=== PATIENT | male | born 1970 | race Caucasian/White ===

== ENCOUNTER 2017-08-23 13:12 | Emergency (ER) | payer OTHER ==
[~2017-08-23] VITALS: Ht 182.9 cm; Wt 223.2 kg
[2017-08-23 13:20] VITALS: Ht 182.9 cm; Wt 223.2 kg
[2017-08-23 16:45] VITALS: BP 164/67
== END 2017-08-23 16:45 | disposition home or self-care (01) ==
LOC: ED 13:12
DX: S80.02XA Contusion of left knee, initial encounter (principal); W01.0XXA Fall on same level from slipping, tripping and stumbling without subsequent striking against object, initial encounter; Y93.89 Activity, other specified; Y92.89 Other specified places as the place of occurrence of the external cause; Y99.8 Other external cause status; I10 Essential (primary) hypertension
CPT/HCPCS: J1885; Q0092

== ENCOUNTER 2019-09-04 15:56 | Emergency (ER) | payer OTHER, MEDICAID, SELFPAY ==
[~2019-09-04] VITALS: Ht 180.3 cm; Wt 136.1 kg
[2019-09-04 15:58] VITALS: Ht 180.3 cm; Wt 136.1 kg
[2019-09-04 17:06] VITALS: BP 155/101
== END 2019-09-04 17:06 | disposition home or self-care (01) ==
LOC: ED 15:56
DX: B34.9 Viral infection, unspecified (principal); I10 Essential (primary) hypertension; Z20.828 Contact with and (suspected) exposure to other viral communicable diseases
CPT/HCPCS: U0003-CS